=== PATIENT | female | born 2000 | race Hispanic/Latino ===

== ENCOUNTER 2023-07-25 18:21 | Emergency (ER) | payer SELFPAY | END 2023-07-25 21:49 | disposition left against medical advice (07) | LOC: ERS 18:21 | DX: Z53.21 Procedure and treatment not carried out due to patient leaving prior to being seen by health care provider (principal) ==

== ENCOUNTER 2023-08-07 16:08 | Emergency (ER) | payer SELFPAY ==
[2023-08-07] MEDS ORDERED: Ibuprofen 200 MG TAB ONE (18:46)
[2023-08-07] MEDS ORDERED: Metoclopramide HCl 10 MG TAB ONE (18:50)
== END 2023-08-07 19:51 | disposition home or self-care (01) ==
LOC: ERS 16:08
DX: R51.9 Headache, unspecified (principal)
CPT/HCPCS: 99283

== ENCOUNTER 2024-05-03 18:50 | Emergency (ER) | payer SELFPAY ==
[2024-05-03] MEDS ORDERED: Ondansetron ODT 4 MG TAB ONE (19:34)
== END 2024-05-03 20:30 | disposition home or self-care (01) ==
LOC: ERS 18:50
DX: R04.0 Epistaxis (principal); R55 Syncope and collapse
CPT/HCPCS: 99283; Q0162

== ENCOUNTER 2024-08-02 20:12 | Emergency (ER) | payer SELFPAY ==
[2024-08-02 21:20] LABS: Bacteria/HPF None Seen HPF (None Seen); Bilirubin Negative (Negative); Blood, Urine 3+ (Negative); CAUTI Indications for Culture Pregnancy; Clarity Clear (Clear); Glucose, Urine (Dipstick) Normal (Negative); Ketone, Urine Negative (Negative); Leukocyte Negative Leu/uL (Negative); Nitrite Negative (Negative); Protein, Urine (Dipstick) 10 mg/dL (Neg-Trace); RBC/HPF Greater than 50 HPF (0-3); Specific Gravity, Urine 1.024 (1.002-1.036); Squamous Epithelial 0-3 HPF (0-3); Urobilinogen Normal mg/dL (Less than 2); pH, Urine 5.5 (5.0-9.0)
[2024-08-02 21:33] LABS: WBC/HPF 0-3 HPF (0-3)
[2024-08-02 21:39] LABS: Urine Culture Reflex Yes Yes
[2024-08-02 22:40] LABS: #Basophils 0.04 10x3/uL (0.0-0.2); %Basophils 0.9 % (0.0-1.0); %Eosinophils 2.5 % (0.0-10.0); %Lymphocytes 38.2 % (21.0-51.0); %Neutrophils 45.2 % (42.0-75.0); Hematocrit 38.8 % (36.0-47.0); Hemoglobin 12.8 g/dL (12.0-16.0); Mean Corpuscular Hemoglobin 26.3 pg (27.0-31.0); Mean Corpuscular Volume 79.8 fL (78.0-98.0); Mean Platelet Volume 10.6 fL (7.4-10.4); Platelet Count 197 10x3/uL (130-400); Red Blood Cell (RBC) Count 4.86 mill/uL (4.20-5.40)
[2024-08-02 23:00] LABS: BHCG - Serum Negative (NEGATIVE); Pregs Control Background? CLEAR/WHITE (CLR/WHITE); Pregs Control Bar Appear? YES (CONTROL BAR)
[2024-08-02 23:01] LABS: ALT (SGPT) 24 U/L (8-55); AST (SGOT) 17 U/L (5-34); Albumin 3.8 g/dL (3.5-5.0); Alkaline Phosphatase 92 U/L (40-110); Anion Gap 13 mmol/L (10-20); BUN (Urea Nitrogen) 8 mg/dL (7.0-18.7); Bilirubin, Total 0.6 mg/dL (0.2-1.2); Calc. Creatinine Clearance 0 mL/min (70-130); Calcium 8.5 mg/dL (7.8-10.44); Carbon Dioxide 22 mmol/L (22-29); Chloride 106 mmol/L (98-107); Estimated GFR 103; Globulin 3.4 g/dL (2.4-3.5); Glucose 114 mg/dL (70-105); Potassium 3.2 mmol/L (3.5-5.1); Protein, Total 7.2 g/dL (6.0-8.3); Sodium 138 mmol/L (136-145)
== END 2024-08-03 00:25 | disposition home or self-care (01) ==
LOC: ERS 20:12
DX: N93.9 Abnormal uterine and vaginal bleeding, unspecified (principal); N83.8 Other noninflammatory disorders of ovary, fallopian tube and broad ligament; E87.6 Hypokalemia
CPT/HCPCS: 36415; 76856; 80053; 81001; 84703; 85025; 87086